=== PATIENT | male | born 1935 | race Caucasian/White ===

== ENCOUNTER 2021-01-12 21:18 | Inpatient (IN) | payer MEDICARE, OTHER ==
[2021-01-12] MEDS ORDERED: Norepinephrine 8 MG/0.9% NS 250 ML ONE (21:25)
[2021-01-12] MEDS ORDERED: Fentanyl 100 MCG/2 ML VIAL ONE (21:28)
[2021-01-12] MEDS ORDERED: Fentanyl CADD 100 ML IV SCH (21:45)
[2021-01-12 21:46] LABS: Actual Bicarbonate (HCO3a) 8.7 mEq/L (22-28); Analyzer IN Cardio ER; Base Excess (BEa) -21.1 mEq/L (-2.0 to +3.0); CO2 Tension 33.2 mmHg (35.0-45.0); Calcium, Ionized (arterial) 1.11 mmol/L (1.12-1.30); Carboxyhemoglobin (COHb) 0.3 gm% (0.0-3.0); Hemoglobin (Hb) 15.1 g/dL (14.0-18.0); O2 Tension (PaO2), arterial 174.3 mmHg (> 60.0); Potassium - ABG Lab 4.58 mmol/L (3.70-5.30)
[2021-01-12 21:51] LABS: Puncture Site RRA; pH, Arterial 7.04 (7.35-7.45)
[2021-01-12 22:25] LABS: #Lymphocytes 1.3 thou/uL (1.20-3.40); #Monocytes 0.5 thou/uL (0.11-0.59); #Neutrophils 17.7 thou/uL (1.40-6.50); %Basophils 0.2 % (0.0-1.0); %Eosinophils 0.2 % (0.0-10.0); %Lymphocytes 6.7 % (21.0-51.0); %Monocytes 2.8 % (0.0-10.0); %Neutrophils 90.2 % (42.0-75.0); Hemoglobin 15.3 g/dL (14.0-18.0); Mean Corpuscular HGB CONC 32.8 g/dL (32.0-36.0); Mean Corpuscular Hemoglobin 31.8 pg (27.0-31.0); Mean Corpuscular Volume 97.2 fL (78.0-98.0); Mean Platelet Volume 8.6 fL (7.4-10.4); Platelet Count 201 thou/uL (130-400); Red Blood Cell (RBC) Count 4.79 mill/uL (4.70-6.10); White Blood Cell (WBC) Count 19.6 thou/uL (4.8-10.8)
[2021-01-12 22:32] LABS: INR-International Normal Ratio 1.4; Prothrombin Time 16.9 sec (12.0-14.7)
[2021-01-12] MEDS ORDERED: Pantoprazole 40 MG VIAL ONE (22:33)
[2021-01-12] MEDS ORDERED: Vancomycin 1 GM/200 ML BAG ONE (22:34)
[2021-01-12 22:45] LABS: SARS-CoV-2 NAA Rapid Test Not Detected (NotDetected)
[2021-01-12] MEDS ORDERED: Ondansetron PF 4 MG/2 ML Vial IVP PRN (22:47)
[2021-01-12] MEDS ORDERED: D5 1/2 NS w/20 mEq KCL 1,000 ML IV PRN (22:47)
[2021-01-12] MEDS ORDERED: Electrolyte Replacement Protocol 1 EACH IVPB ONE (22:47)
[2021-01-12] MEDS ORDERED: Sodium Chloride 0.9% 1,000 ML IV PRN ×2 (22:47)
[2021-01-12] MEDS ORDERED: NS 0.9% w/ 20 MEQ KCL 1,000 ML IV PRN ×2 (22:47)
[2021-01-12] MEDS ORDERED: Ventilator Sedation Protocol 1 EACH FS ONE (22:47)
[2021-01-12] MEDS ORDERED: Dextrose 5 %-0.45 % NaCl 1,000 ML IV PRN (22:47)
[2021-01-12 22:51] LABS: ALT (SGPT) 13 U/L (8-55); AST (SGOT) 28 U/L (5-34); Albumin 3.2 g/dL (3.4-4.8); Alkaline Phosphatase 87 U/L (40-110); Anion Gap 26 mmol/L (10-20); BUN (Urea Nitrogen) 12 mg/dL (8.4-25.7); Bilirubin, Total 0.4 mg/dL (0.2-1.2); Calc. Creatinine Clearance 0 mL/min (70-130); Calcium 7.8 mg/dL (7.8-10.44); Chloride 104 mmol/L (98-107); Globulin 2.8 g/dL (2.4-3.5); Glucose 467 mg/dL (83-110); Potassium 4.8 mmol/L (3.5-5.1); Sodium 134 mmol/L (136-145)
[2021-01-12] MEDS ORDERED: Pantoprazole 80 MG in Sodium Chloride 0.9% 100 ML IVPB SCH (22:52)
[2021-01-12] MEDS ORDERED: Lactated Ringer's 1,000 ML IV SCH (23:00)
[2021-01-12] MEDS ORDERED: Octreotide Acetate 1,250 MCG in Sodium Chloride 0.9% 250 ML 250 ML IVPB SCH (23:00)
[2021-01-12] MEDS ORDERED: Pantoprazole 80 MG, Admixture Fee 1 EACH in Sodium Chloride 0.9% 100 ML IVPB SCH (23:00)
[2021-01-12] MEDS ORDERED: HUMULIN R 100 UNITS in Sodium Chloride 0.9% 100 ML IVPB SCH ×2 (23:00→23:15)
[2021-01-12 23:01] LABS: Carbon Dioxide 9 mmol/L (23-31)
[2021-01-12 23:23] LABS: Bacteria/HPF None Seen HPF (None Seen); Bilirubin Negative (Negative); Blood, Urine 3+ (Negative); Clarity Clear (Clear); Glucose, Urine (Dipstick) Greater than 1000 mg/dL (Negative); Ketone, Urine 10 mg/dL (Negative); Leukocyte 25 Leu/uL (Negative); Nitrite Negative (Negative); Protein, Urine (Dipstick) 70 mg/dL (Neg-Trace); RBC/HPF Greater than 50 HPF (0-3); Specific Gravity, Urine 1.035 (1.002-1.036); Squamous Epithelial 0-3 HPF (0-3); Urobilinogen Normal mg/dL (Less than 2)
[2021-01-12] MEDS ORDERED: DISCONTINUE PREVIOUS NARCOTIC PAIN MEDICATIONS AND BENZODIAZEPINES FS SCH (23:30)
[2021-01-12] MEDS ORDERED: Electrolyte Replacement Protocol FS PRN (23:30)
[2021-01-12] MEDS ORDERED: Propofol BOLUS 1,000 MG/100 ML VIAL IV PRN (23:30)
[2021-01-12] MEDS ORDERED: Fentanyl BOLUS 250 ML IVPB PRN (23:30)
[2021-01-12] MEDS ORDERED: Morphine 2 MG/ML VIAL SLOW IVP PRN (23:30)
[2021-01-12 23:34] LABS: Hemoglobin A1c 9.6 % (4.0-6.0)
[2021-01-12 23:46] LABS: Troponin I 0.723 ng/mL (< 0.028)
[2021-01-12 23:52] LABS: CKMB 8.5 ng/mL (0-6.6)
[2021-01-12 23:55] LABS: ALT (SGPT) 17 U/L (8-55); AST (SGOT) 51 U/L (5-34); Albumin 3.4 g/dL (3.4-4.8); Alkaline Phosphatase 96 U/L (40-110); Anion Gap 26 mmol/L (10-20); BUN (Urea Nitrogen) 12 mg/dL (8.4-25.7); Bilirubin, Total 0.6 mg/dL (0.2-1.2); Calc. Creatinine Clearance 0 mL/min (70-130); Calcium 8.2 mg/dL (7.8-10.44); Chloride 106 mmol/L (98-107); Glucose 425 mg/dL (83-110); Hemoglobin 16.5 g/dL (14.0-18.0); Mean Corpuscular HGB CONC 32.7 g/dL (32.0-36.0); Mean Corpuscular Hemoglobin 31.7 pg (27.0-31.0); Mean Corpuscular Volume 97.2 fL (78.0-98.0); Mean Platelet Volume 8.3 fL (7.4-10.4); Platelet Count 213 thou/uL (130-400); Potassium 4.8 mmol/L (3.5-5.1); RBC Distribution Width 12.2 % (11.5-14.5); Red Blood Cell (RBC) Count 5.19 mill/uL (4.70-6.10); Sodium 135 mmol/L (136-145); White Blood Cell (WBC) Count 24.7 thou/uL (4.8-10.8)
[2021-01-13 00:03] LABS: Carbon Dioxide 8 mmol/L (23-31)
[2021-01-13 00:17] LABS: Band 12 % (5-11); Globulin 3.6 g/dL (2.4-3.5); Lymphocytes 6 % (21-51); MDiff Complete? YES; Monocytes 3 % (0-10); Neutrophil 79 % (42-75); Protein, Total 6.9 g/dL (5.8-8.1)
[2021-01-13] MEDS ORDERED: Sodium Bicarb 50 MEQ/50 ML Abboject 8.4% SYRINGE ONE (00:43)
[2021-01-13] MEDS ORDERED: Sodium Bicarb 50 MEQ/50 ML Abboject 8.4% SYRINGE IVP SCH (00:45)
[2021-01-13 01:30] LABS: Hemoglobin 16.1 g/dL (14.0-18.0)
[2021-01-13 01:58] LABS: ALT (SGPT) 17 U/L (8-55); AST (SGOT) 68 U/L (5-34); Albumin 2.9 g/dL (3.4-4.8); Alkaline Phosphatase 83 U/L (40-110); Anion Gap 29 mmol/L (10-20); BUN (Urea Nitrogen) 14 mg/dL (8.4-25.7); Bilirubin, Total 0.5 mg/dL (0.2-1.2); Calc. Creatinine Clearance 37 mL/min (70-130); Calcium 7.8 mg/dL (7.8-10.44); Carbon Dioxide 11 mmol/L (23-31); Chloride 103 mmol/L (98-107); Globulin 3.3 g/dL (2.4-3.5); Glucose 452 mg/dL (83-110); Potassium 5.1 mmol/L (3.5-5.1); Protein, Total 6.2 g/dL (5.8-8.1); Sodium 138 mmol/L (136-145)
[2021-01-13 02:11] LABS: Lactic Acid 14.6 mmol/L (0.5-2.2)
[2021-01-13] MEDS: Lorazepam 2 MG/ML VIAL SLOW IVP PRN (02:13)
[2021-01-13] MEDS: Norepinephrine 8 MG/0.9% NS 250 ML IVPB SCH ×2 (02:15→17:58)
[2021-01-13] MEDS: Propofol 1,000 MG/100 ML VIAL IV PRN ×2 (03:00→12:55)
[2021-01-13] MEDS: Sodium Bicarbonate 150 MEQ in Sterile Water Injection 1,000 ML IV SCH (03:38)
[2021-01-13 04:24] LABS: Troponin I 11.879 ng/mL (< 0.028)
[2021-01-13] MEDS ORDERED: Cefepime 2 GM VIAL IVPB SCH (06:00)
[2021-01-13 06:29] LABS: Mean Corpuscular HGB CONC 33.1 g/dL (32.0-36.0); Mean Corpuscular Hemoglobin 31.2 pg (27.0-31.0); Mean Corpuscular Volume 94.4 fL (78.0-98.0); Mean Platelet Volume 7.8 fL (7.4-10.4); Platelet Count 199 thou/uL (130-400); RBC Distribution Width 12.3 % (11.5-14.5); Red Blood Cell (RBC) Count 5.12 mill/uL (4.70-6.10); White Blood Cell (WBC) Count 18.6 thou/uL (4.8-10.8)
[2021-01-13 06:44] LABS: Band 20 % (5-11); Lymphocytes 3 % (21-51); MDiff Complete? YES; Monocytes 2 % (0-10); Neutrophil 75 % (42-75)
[2021-01-13 06:47] LABS: Anion Gap 16 mmol/L (10-20); BUN (Urea Nitrogen) 14 mg/dL (8.4-25.7); Calc. Creatinine Clearance 41 mL/min (70-130); Calcium 7.6 mg/dL (7.8-10.44); Carbon Dioxide 20 mmol/L (23-31); Chloride 108 mmol/L (98-107); Glucose 184 mg/dL (83-110); Potassium 3.8 mmol/L (3.5-5.1); Sodium 140 mmol/L (136-145)
[2021-01-13] MEDS ORDERED: Pantoprazole 80 MG, Admixture Fee 1 EACH in Sodium Chloride 0.9% 100 ML IVPB SCH (09:15)
[2021-01-13] MEDS: Cefepime 2 GM in Sodium Chloride 0.9% 100 ML IVPB SCH ×2 (09:49→20:26)
[2021-01-13 11:37] LABS: Hemoglobin 14.9 g/dL (14.0-18.0)
[2021-01-13 11:49] LABS: Lactic Acid 3.8 mmol/L (0.5-2.2)
[2021-01-13 11:51] LABS: Anion Gap 15 mmol/L (10-20); BUN (Urea Nitrogen) 15 mg/dL (8.4-25.7); Calc. Creatinine Clearance 44 mL/min (70-130); Calcium 7.5 mg/dL (7.8-10.44); Carbon Dioxide 23 mmol/L (23-31); Chloride 107 mmol/L (98-107); Glucose 95 mg/dL (83-110); Potassium 4.1 mmol/L (3.5-5.1); Sodium 141 mmol/L (136-145)
[2021-01-13 12:24] LABS: Troponin I 170.112 ng/mL (< 0.028)
[2021-01-13] MEDS ORDERED: Heparin 10,000 UNITS/ 10 ML VIAL SLOW IVP SCH (13:15)
[2021-01-13] MEDS ORDERED: Dextrose 50% Abboject 50 ML SYRINGE SLOW IVP PRN (13:24)
[2021-01-13] MEDS ORDERED: Dextrose 5% in Water 1,000 ML IV PRN (13:24)
[2021-01-13 13:32] LABS: Hemoglobin 15.5 g/dL (14.0-18.0); Platelet Count 145 thou/uL (130-400)
[2021-01-13] MEDS ORDERED: Fentanyl CADD 100 ML ONE (13:47)
[2021-01-13] MEDS: NPH, Human Insulin Isophane 300 UNIT/3 ML VIAL SC SCH ×2 (14:51→20:15)
[2021-01-13] MEDS: Heparin 25,000 units/D5W 500 ML IVPB SCH (15:12)
[2021-01-13] MEDS: HumaLOG 300 UNITS/3 ML VIAL SC PRN (17:30)
[2021-01-13 20:05] LABS: PTT Greater than 250.0 sec (22.9-36.1)
[2021-01-13] MEDS: Pantoprazole 40 MG VIAL IVP SCH (20:24)
[2021-01-13] MEDS: Vancomycin 1 GM in Premix Bag 1 BAG IVPB SCH (20:26)
[2021-01-13 21:49] LABS: PTT 166.6 sec (22.9-36.1)
[2021-01-14] MEDS: HumaLOG 300 UNITS/3 ML VIAL SC PRN (01:18)
[2021-01-14] MEDS: NPH, Human Insulin Isophane 300 UNIT/3 ML VIAL SC SCH ×4 (01:19→20:45)
[2021-01-14] MEDS ORDERED: Propofol 500 MG/50 ML VIAL IV PRN (04:01)
[2021-01-14] MEDS: Lorazepam 2 MG/ML VIAL SLOW IVP PRN (04:06)
[2021-01-14] MEDS ORDERED: Fentanyl CADD 100 ML ONE ×2 (04:14→21:35)
[2021-01-14] MEDS: Sodium Bicarbonate 150 MEQ in Sterile Water Injection 1,000 ML IV SCH ×2 (04:23→17:22)
[2021-01-14] MEDS: Fentanyl CADD 100 ML IV SCH ×2 (04:24→21:42)
[2021-01-14 04:38] LABS: Phosphorus 3.8 mg/dL (2.3-4.7)
[2021-01-14 04:44] LABS: ALT (SGPT) 701 U/L (8-55); AST (SGOT) 1656 U/L (5-34); Albumin 2.6 g/dL (3.4-4.8); Alkaline Phosphatase 73 U/L (40-110); Anion Gap 22 mmol/L (10-20); BUN (Urea Nitrogen) 22 mg/dL (8.4-25.7); Bilirubin, Total 0.7 mg/dL (0.2-1.2); Calc. Creatinine Clearance 38 mL/min (70-130); Calcium 7.2 mg/dL (7.8-10.44); Carbon Dioxide 21 mmol/L (23-31); Chloride 101 mmol/L (98-107); Globulin 2.6 g/dL (2.4-3.5); Glucose 198 mg/dL (83-110); Potassium 4.5 mmol/L (3.5-5.1); Protein, Total 5.2 g/dL (5.8-8.1); Sodium 139 mmol/L (136-145)
[2021-01-14 04:54] LABS: Band 14 % (5-11); Hemoglobin 15.1 g/dL (14.0-18.0); Lymphocytes 10 % (21-51); MDiff Complete? YES; Mean Corpuscular HGB CONC 33.3 g/dL (32.0-36.0); Mean Corpuscular Hemoglobin 31.7 pg (27.0-31.0); Mean Corpuscular Volume 95.2 fL (78.0-98.0); Mean Platelet Volume 8.6 fL (7.4-10.4); Metamyelocyte 1 % (0-0); Monocytes 5 % (0-10); Neutrophil 66 % (42-75); Platelet Count 127 thou/uL (130-400); Platelet Morphology Comment Appears Adequate; RBC Distribution Width 12.5 % (11.5-14.5); Reactive Lymphocytes 4 % (0-10); Red Blood Cell (RBC) Count 4.77 mill/uL (4.70-6.10); Toxic Granulation SLIGHT; White Blood Cell (WBC) Count 13.2 thou/uL (4.8-10.8)
[2021-01-14] MEDS: Cefepime 2 GM in Sodium Chloride 0.9% 100 ML IVPB SCH ×2 (07:42→20:24)
[2021-01-14] MEDS: Pantoprazole 40 MG VIAL IVP SCH ×2 (07:42→20:44)
[2021-01-14 08:00] LABS: Base Excess (BEa) -0.8 mEq/L (-2.0 to +3.0); CO2 Tension 45.6 mmHg (35.0-45.0); Calcium, Ionized (arterial) 0.97 mmol/L (1.12-1.30); Carboxyhemoglobin (COHb) 0.8 gm% (0.0-3.0); O2 Tension (PaO2), arterial 81.7 mmHg (> 60.0); Potassium - ABG Lab 4.08 mmol/L (3.70-5.30); pH, Arterial 7.36 (7.35-7.45)
[2021-01-14 08:55] LABS: Puncture Site RRA
[2021-01-14] MEDS: Propofol 1,000 MG/100 ML VIAL IV PRN (12:57)
[2021-01-14] MEDS: DOBUTamine 500 mg/250 ml 250 ML IVPB SCH (14:03)
[2021-01-14 15:37] LABS: INR-International Normal Ratio 2.1; Prothrombin Time 23.4 sec (12.0-14.7)
[2021-01-14 15:39] LABS: PTT 86.2 sec (22.9-36.1)
[2021-01-14] MEDS ORDERED: Magnesium 2 GM/50 ML 2 GM in Premix Bag 1 BAG IVPB SCH (16:00)
[2021-01-14] MEDS: Norepinephrine 8 MG/0.9% NS 250 ML IVPB SCH ×2 (17:22→21:47)
[2021-01-14] MEDS: Vancomycin 1 GM in Premix Bag 1 BAG IVPB SCH (20:44)
[2021-01-14] MEDS ORDERED: Acetaminophen 650 MG/20.3 ML UDCUP PER TUBE PRN (21:11)
[2021-01-14 21:19] LABS: Vancomycin, Trough 9.7 ug/mL
[2021-01-15] MEDS: HumaLOG 300 UNITS/3 ML VIAL SC PRN ×4 (00:50→17:15)
[2021-01-15] MEDS: NPH, Human Insulin Isophane 300 UNIT/3 ML VIAL SC SCH ×2 (01:45→09:51)
[2021-01-15 07:27] LABS: ALT (SGPT) 808 U/L (8-55); AST (SGOT) 852 U/L (5-34); Albumin 2.2 g/dL (3.4-4.8); Alkaline Phosphatase 79 U/L (40-110); Anion Gap 15 mmol/L (10-20); BUN (Urea Nitrogen) 32 mg/dL (8.4-25.7); Bilirubin, Total 1.1 mg/dL (0.2-1.2); Calc. Creatinine Clearance 32 mL/min (70-130); Calcium 7.5 mg/dL (7.8-10.44); Carbon Dioxide 27 mmol/L (23-31); Chloride 96 mmol/L (98-107); Glucose 215 mg/dL (83-110); Magnesium 2.2 mg/dL (1.6-2.6); Potassium 4.2 mmol/L (3.5-5.1); Protein, Total 5.2 g/dL (5.8-8.1); Sodium 134 mmol/L (136-145)
[2021-01-15 07:44] LABS: Band 54 % (5-11); Hemoglobin 13.7 g/dL (14.0-18.0); Lymphocytes 11 % (21-51); MDiff Complete? YES; Mean Corpuscular HGB CONC 32.2 g/dL (32.0-36.0); Mean Corpuscular Hemoglobin 30.7 pg (27.0-31.0); Mean Corpuscular Volume 95.1 fL (78.0-98.0); Mean Platelet Volume 8.7 fL (7.4-10.4); Metamyelocyte 3 % (0-0); Monocytes 4 % (0-10); Neutrophil 28 % (42-75); Platelet Count 124 thou/uL (130-400); RBC Distribution Width 12.5 % (11.5-14.5); Red Blood Cell (RBC) Count 4.46 mill/uL (4.70-6.10); White Blood Cell (WBC) Count 13.3 thou/uL (4.8-10.8)
[2021-01-15] MEDS: Propofol 1,000 MG/100 ML VIAL IV PRN ×2 (07:59→20:06)
[2021-01-15] MEDS: Heparin 25,000 units/D5W 500 ML IVPB SCH (08:00)
[2021-01-15 08:09] LABS: CKMB 14.7 ng/mL (0-6.6)
[2021-01-15 08:20] LABS: Base Excess (BEa) -1.8 mEq/L (-2.0 to +3.0); CO2 Tension 44.6 mmHg (35.0-45.0); Calcium, Ionized (arterial) 0.99 mmol/L (1.12-1.30); Carboxyhemoglobin (COHb) 1.3 gm% (0.0-3.0); Hemoglobin (Hb) 13.9 g/dL (14.0-18.0); Potassium - ABG Lab 3.88 mmol/L (3.70-5.30); pH, Arterial 7.35 (7.35-7.45)
[2021-01-15 09:14] LABS: Puncture Site RRA
[2021-01-15] MEDS ORDERED: Furosemide 40 MG/4 ML VIAL ONE (09:40)
[2021-01-15] MEDS ORDERED: Furosemide 40 MG/4 ML VIAL SLOW IVP SCH (09:45)
[2021-01-15] MEDS: Pantoprazole 40 MG VIAL IVP SCH ×2 (09:50→19:43)
[2021-01-15] MEDS: Norepinephrine 8 MG/0.9% NS 250 ML IVPB SCH ×2 (09:50→20:07)
[2021-01-15] MEDS: Cefepime 2 GM in Sodium Chloride 0.9% 100 ML IVPB SCH ×2 (10:09→20:54)
[2021-01-15] MEDS ORDERED: Fentanyl CADD 100 ML ONE (11:36)
[2021-01-15] MEDS: Fentanyl CADD 100 ML IV SCH (11:41)
[2021-01-15] MEDS ORDERED: VANCOMYCIN 1.25 GM/250 ML BAG 1.25 GM in Premix Bag 1 BAG IVPB SCH (17:00)
[2021-01-15] MEDS ORDERED: Furosemide 100 MG/10 ML VIAL SLOW IVP SCH (18:00)
[2021-01-15] MEDS: DOBUTamine 500 mg/250 ml 250 ML IVPB SCH (20:07)
[2021-01-15] MEDS ORDERED: Atorvastatin Calcium 40 MG TAB PO SCH (21:00)
[2021-01-15] MEDS ORDERED: Lantus 1000 UNITS/10 ML VIAL SC SCH (21:00)
[2021-01-16] MEDS ORDERED: Fentanyl CADD 100 ML ONE (00:29)
[2021-01-16] MEDS: Fentanyl CADD 100 ML IV SCH (01:06)
[2021-01-16 02:03] VITALS: BP 94/62
[2021-01-16 04:44] LABS: Chloride 97 mmol/L (98-107); Potassium 4.3 mmol/L (3.5-5.1); Sodium 137 mmol/L (136-145)
[2021-01-16 04:45] LABS: Calcium 7.3 mg/dL (7.8-10.44); Glucose 135 mg/dL (83-110); Triglycerides 381 mg/dL (Less than 150)
[2021-01-16 04:46] LABS: Globulin 2.4 g/dL (2.4-3.5); Protein, Total 4.4 g/dL (5.8-8.1)
[2021-01-16 04:47] LABS: Bilirubin, Total 1.4 mg/dL (0.2-1.2); Carbon Dioxide 27 mmol/L (23-31)
[2021-01-16 04:48] LABS: Alkaline Phosphatase 82 U/L (40-110)
[2021-01-16 04:50] LABS: AST (SGOT) 363 U/L (5-34); BUN (Urea Nitrogen) 44 mg/dL (8.4-25.7); Cholesterol 96 mg/dl (< 200 Desired)
[2021-01-16 04:51] LABS: ALT (SGPT) 546 U/L (8-55); HDL Cholesterol Less than 8 mg/dL (>60 Neg Risk); Magnesium 2.1 mg/dL (1.6-2.6)
[2021-01-16 05:05] LABS: Hemoglobin 12.8 g/dL (14.0-18.0); Mean Corpuscular HGB CONC 32.5 g/dL (32.0-36.0); Mean Corpuscular Hemoglobin 31.3 pg (27.0-31.0); Mean Corpuscular Volume 96.2 fL (78.0-98.0); Mean Platelet Volume 8.9 fL (7.4-10.4); Platelet Count 113 thou/uL (130-400); RBC Distribution Width 12.4 % (11.5-14.5); Red Blood Cell (RBC) Count 4.09 mill/uL (4.70-6.10); White Blood Cell (WBC) Count 12.9 thou/uL (4.8-10.8)
[2021-01-16 05:07] LABS: Band 39 % (5-11); Lymphocytes 3 % (21-51); MDiff Complete? YES; Monocytes 7 % (0-10); Neutrophil 51 % (42-75); Platelet Morphology Comment Appears Decreased
[2021-01-16] MEDS ORDERED: Amiodarone 450 MG, Admixture Fee 1 EACH in Dextrose 5% in Water 250 ML IVPB SCH (05:45)
[2021-01-16] MEDS: Norepinephrine 8 MG/0.9% NS 250 ML IVPB SCH ×2 (05:53→10:52)
[2021-01-16 06:03] LABS: Calc. Creatinine Clearance 20 mL/min (70-130); Phosphorus 4.7 mg/dL (2.3-4.7)
[2021-01-16 06:12] LABS: Anion Gap 17 mmol/L (10-20)
[2021-01-16] MEDS ORDERED: VANCOMYCIN 1.25 GM/250 ML BAG 1.25 GM in Premix Bag 1 BAG IVPB SCH (07:00)
[2021-01-16] MEDS ORDERED: EPINEPHrine 4 MG in Dextrose 5% in Water 250 ML IV SCH (08:15)
[2021-01-16] MEDS ORDERED: Aspirin Chewable 81 MG TAB PO SCH (09:00)
[2021-01-16] MEDS ORDERED: Polyethylene Glycol 3350 17 GM Packet PO SCH (09:00)
[2021-01-16] MEDS: Cefepime 2 GM in Sodium Chloride 0.9% 100 ML IVPB SCH (10:50)
[2021-01-16] MEDS: Pantoprazole 40 MG VIAL IVP SCH (10:51)
[2021-01-16 11:10] VITALS: BMI 26.0
[2021-01-16] MEDS ORDERED: Morphine 4 MG/ML VIAL SLOW IVP PRN (11:29)
[2021-01-16] MEDS ORDERED: Lorazepam 2 MG/ML VIAL SLOW IVP PRN (11:31)
[2021-01-16 12:57] VITALS: TEMP 99.8
== END 2021-01-16 13:07 | disposition expired | DRG 871 ==
LOC: ERS 21:18 → CCU 22:22
PROVIDERS: ADMIT Internal Medicine; ATTEND Internal Medicine
PROC: 5A1945Z Respiratory Ventilation, 24-96 Consecutive Hours (ICD-10-PCS; principal; 2021-01-12)
PROC: 0D9670Z Drainage of Stomach with Drainage Device, Via Natural or Artificial Opening (ICD-10-PCS; 2021-01-12)
PROC: 3E043XZ Introduction of Vasopressor into Central Vein, Percutaneous Approach (ICD-10-PCS; 2021-01-12)
DX: A41.9 Sepsis, unspecified organism (principal); R65.21 Severe sepsis with septic shock; J69.0 Pneumonitis due to inhalation of food and vomit; I21.4 Non-ST elevation (NSTEMI) myocardial infarction; J96.01 Acute respiratory failure with hypoxia; I42.0 Dilated cardiomyopathy; N17.9 Acute kidney failure, unspecified; K92.2 Gastrointestinal hemorrhage, unspecified; E87.2 Acidosis; Z66 Do not resuscitate; Z20.822 Contact with and (suspected) exposure to COVID-19; R57.0 Cardiogenic shock; I44.7 Left bundle-branch block, unspecified; E11.65 Type 2 diabetes mellitus with hyperglycemia; I10 Essential (primary) hypertension; Z79.82 Long term (current) use of aspirin; Z78.1 Physical restraint status
CPT/HCPCS: 0240U; 36415; 36416; 36600; 51702; 71045; 80053; 80061; 80202; 81003; 81015; 82010; 82553; 82805; 83036; 83605; 83735; 83880; 84100; 84484; 85014; 85018; 85025; 85610; 85652; 85730; 87040; 93005; 93010; 93306; 94002; 94003; 96365; 96366; 96367; 96374; 96375; 99292; A4217; C9113; J0171; J0282; J0692; J1250; J1644; J1815; J1940; J1956; J2060; J2354; J2704; J3010; J3370; J3475; J3490; J7050; J7070